=== PATIENT | male | born 1980 | race Caucasian/White ===

== ENCOUNTER → 2017-03-24 | Outpatient (CLI) | payer OTHER ==
[2017-03-24 19:53] LABS: BASO # 0.1 K/mm3 (0.0-0.2); BASO % 0.9 % (0.0-1.0); EOS # 0.5 K/mm3 (0.0-0.50); EOS % 6.9 % (0.0-3.0); LARGE UNSTAINED CELL # 0.3 K/mm3 (0.0-0.4); LARGE UNSTAINED CELL % 5.1 % (0.0-4.0); LYMPH # 2.1 K/mm3 (1.5-4.5); LYMPH % 25.8 % (24.0-44.0); MEAN CORPUSCULAR HEMOGLOBIN 29.5 pg (27.0-33.0); MEAN CORPUSCULAR HGB CONC 33.8 g/dl (32.0-36.5); MEAN CORPUSCULAR VOLUME 87.3 fl (80.0-96.0); MONO # 0.4 K/mm3 (0.0-0.8); NEUTROPHILS # 3.7 K/mm3 (1.8-7.7); NEUTROPHILS % 55.3 % (36.0-66.0); PLATELET COUNT, AUTOMATED 199 k/mm3 (150-450); RED CELL DISTRIBUTION WIDTH 13.5 % (11.5-14.5); WHITE BLOOD COUNT 6.7 K/mm3 (4.0-10.0)
[2017-03-24 19:57] LABS: ALBUMIN 4.1 GM/DL (3.2-5.2); ALBUMIN/GLOBULIN RATIO 1.28 (1.00-1.93); ALKALINE PHOSPHATASE 77 U/L (45-117); ALT/SGPT 54 U/L (12-78); ANION GAP 5 MEQ/L (8-16); AST/SGOT 32 U/L (15-37); BILIRUBIN,TOTAL 0.5 MG/DL (0.2-1.0); BLOOD UREA NITROGEN 17 MG/DL (7-18); CALCIUM LEVEL 8.9 MG/DL (8.5-10.1); CARBON DIOXIDE LEVEL 28 MEQ/L (21-32); CHLORIDE LEVEL 109 MEQ/L (98-107); CREATININE FOR GFR 1.05 MG/DL (0.70-1.30); GLOMERULAR FILTRATION RATE > 60.0 (>60); GLUCOSE, FASTING 85 MG/DL (70-105); POTASSIUM SERUM 4.4 MEQ/L (3.5-5.1); SODIUM LEVEL 142 MEQ/L (136-145); TOTAL PROTEIN 7.3 GM/DL (6.4-8.2)
== END ==
LOC: M WUC 12:37
PROVIDERS: ATTEND Family Medicine
DX: R53.83 Other fatigue (principal)

== ENCOUNTER 2017-07-10 09:15 | Emergency (ER) | payer OTHER ==
[~2017-07-10] VITALS: Ht 175.3 cm; Wt 91.8 kg
[2017-07-10 09:21] VITALS: BP 133/72
[2017-07-10] MEDS ORDERED: TOBR3OPD (09:25)
[2017-07-10] MEDS ORDERED: NAPR500T3 PO (09:25)
[2017-07-10] MEDS ORDERED: FLUORESCEIN OPHTH 1 MG STRIP OS ONE (09:30)
[2017-07-10] MEDS ORDERED: TETRACAINE 0.5% OPHTH SOLN 4ML OS ONE (09:30)
[2017-07-10] MEDS ORDERED: PRED1SUS OS (10:19)
[2017-07-10] MEDS ORDERED: CYCL1SOL OS (10:19)
== END 2017-07-10 10:29 | disposition home or self-care (01) ==
LOC: M ED 09:15
DX: H20.042 Secondary noninfectious iridocyclitis, left eye (principal); C81.90 Hodgkin lymphoma, unspecified, unspecified site

== ENCOUNTER → 2017-07-23 | Outpatient (CLI) | payer OTHER | LOC: M WUC 12:23 | DX: J20.9 Acute bronchitis, unspecified (principal); R05 Cough | CPT/HCPCS: 71020 ==

== ENCOUNTER → 2019-09-03 | Outpatient (CLI) | payer OTHER ==
[~2019-09-03] MED LIST: AK-T0.3S; CYCL1SOL OS; NAPR-885 PO; PRED1SUS2 OS
--- NOTE | 2019-09-03 11:05 | PFTRPT ---
Site: [facility], [address], [place], [address] ID: [id number] Name: BRENNA NOVAK Visit Date: 09/03/2019 Second ID: [id number] Referring Doctor: Rose Marie Davidson Reviewing Doctor: Fili Gregory MD Bander Hand: Helio PIMENTEL RRT Age: 39 : 1980 Sex: Male Race: Height: 70.00 Inches Weight: 199.00 Lbs BSA: 2.08 Order IDs: [id number] Requested Test(s): <RESP-PFT.PFT B/A> Diagnosis: SOB of albuterol for postbronchodilator. Review Status: Not Reviewed Pre-Bronch Post-Bronch Pred Actual %Pred Actual %Chng SPIROMETRY FVC (L) 5.34 4.18 78 4.24 1 FEV1 (L) 4.28 3.34 78 3.44 2 FEV1/FVC (%) 80 80 99 81 1 FEF 25% (L/sec) 8.21 7.09 86 8.28 16 FEF 50% (L/sec) 5.42 3.60 66 4.08 13 FEF 75% (L/sec) 1.98 1.39 70 1.45 4 FEF 25-75% (L/sec) 4.09 3.03 74 3.31 9 FEF Max (L/sec) 10.22 8.07 78 8.85 9 FIVC (L) 4.18 3.97 -4 FIF 50% (L/sec) 5.30 6.40 120 6.77 5 FIF Max (L/sec) 6.39 6.87 7 MVV (L/min) 169 113 66 Expiratory Time (sec) 7.07 6.82 -3 Back Extrap Vol (L) 0.17 0.14 -13 Time To FEFmax (sec) 0.096 0.112 15 LUNG VOLUMES SVC (L) 5.14 4.23 82 IC (L) 3.48 3.50 100 ERV (L) 1.66 0.73 43 TGV (L) 3.44 2.67 77 RV (Pleth) (L) 1.78 1.94 108 TLC (Pleth) (L) 6.92 6.17 89 RV/TLC (Pleth) (%) 26 31 120 DIFFUSION DLCOunc (ml/min/mmHg) 33.57 28.17 83 DLCOcor (ml/min/mmHg) 33.57 28.58 85 DL/VA (ml/min/mmHg/L) 4.85 5.07 104 VA (L) 6.92 5.63 81 BHT (sec) 10.18 IVC (L) 4.19 TLC (SB) (L) 5.78 AIRWAYS RESISTANCE Raw (cmH2O/L/s) 1.45 1.06 73 Gaw (L/s/cmH2O) 1.03 0.98 95 sRaw (cmH2O*s) 4.76 3.41 71 sGaw (1/cmH2O*s) 0.20 0.30 149 BLOOD GASES Hgb (gm/dL) 14.1
== END ==
LOC: M CARPUL 10:10
PROVIDERS: ATTEND Physician Assistant Medical
DX: R06.02 Shortness of breath (principal); C81.90 Hodgkin lymphoma, unspecified, unspecified site

== ENCOUNTER → 2020-07-03 | Outpatient (CLI) | payer OTHER ==
[~2020-07-03] MED LIST changes: +E-Z-GAS II EFFERVESCENT PACKET (SODIUM BICARB./CITRIC ACID/SIMETHICONE) As Ordered ONE; +E-Z-HD 98% w/w 340GM SUSP BTL As Ordered ONE; +E-Z-PAQUE 96% w/w SUSP 176GM BTL As Ordered ONE
--- NOTE | 2020-07-03 15:33 | REP ---
INDICATION: DYSPHAGIA. COMPARISON: None TECHNIQUE: This procedure was performed by Lynn Sin, [facility], under the direct supervision of Dr. Harper. Images were reviewed with Dr. Harper prior to dictation. Liquid barium and gas producing crystals were given in the erect position, as well as liquid barium in the prone oblique position in order to perform a double contrast esophagram examination. . FINDINGS: A single view PA chest x-ray is submitted as a [employer] technical architect film. There is no change since the previous chest x-ray dated 07/23/2017. The oral and pharyngeal stages of deglutition were unremarkable. Esophageal transport is prompt and efficient and there is no evidence of esophagitis, stricture, or mucosal ring. There is no evidence of a hiatal hernia. There is a small amount of gastroesophageal reflux into the distal esophagus. IMPRESSION: Small amount of gastroesophageal reflux into the distal esophagus, otherwise unremarkable esophagram. 0.1 minutes of fluoroscopy time was utilized for this procedure. Some fluoroscopic images are performed with last image hold technology. These images require no additional radiation. <Electronically signed by Lynn Sin > 07/03/20 1434 <Electronically signed by Meng Harper > 07/03/20 1538
== END ==
LOC: M RAD 09:02
PROVIDERS: ATTEND Nurse Practitioner Family
DX: R13.10 Dysphagia, unspecified (principal)

== ENCOUNTER 2021-03-15 20:00 | Emergency (ER) | payer OTHER ==
[~2021-03-15] VITALS: Ht 175.3 cm; Wt 96.6 kg
[~2021-03-15 20:00] MED LIST changes: -E-Z-GAS II EFFERVESCENT PACKET (SODIUM BICARB./CITRIC ACID/SIMETHICONE) As Ordered ONE; -E-Z-HD 98% w/w 340GM SUSP BTL As Ordered ONE; -E-Z-PAQUE 96% w/w SUSP 176GM BTL As Ordered ONE
[2021-03-16] MEDS ORDERED: BOOSTRIX/ADACEL VACCINE (DIPHTH/PERTUSS/ACELL/TETANUS) 0.5ML SYR IM ONE (02:15)
[2021-03-16] MEDS ORDERED: DERMABOND TOPICAL SKIN ADHESIVE TOP ONE ×2 (02:15→02:55)
--- NOTE | 2021-03-16 03:40 | REPVR ---
PROCEDURE INFORMATION: Exam: XR Left Foot Exam date and time: 03/16/2021 2:29 AM Age: 41 years old Clinical indication: Injury or trauma; Other: Laceration; Foot; Left; Foreign body involvement not specified; Additional info: Hatchet injury great toe TECHNIQUE: Imaging protocol: XR Left foot. Views: 3 or more views. COMPARISON: No relevant prior studies available. FINDINGS: Bones/joints: Normal. Soft tissues: Suggestion of slight soft tissue injury of the distal great toe the remaining soft tissues are normal. IMPRESSION: 1. Suggestion of slight soft tissue injury of the distal great toe. 2. Otherwise negative left foot. Electronically signed by: Jose Schuler On 03/16/2021 03:39:38 AM
[2021-03-16 04:17] VITALS: BP 132/71
== END 2021-03-16 04:18 | disposition home or self-care (01) ==
LOC: M ED 20:00
DX: S91.111A Laceration without foreign body of right great toe without damage to nail, initial encounter (principal); X58.XXXA Exposure to other specified factors, initial encounter; Y92.099 Unspecified place in other non-institutional residence as the place of occurrence of the external cause; Y93.9 Activity, unspecified; Y99.9 Unspecified external cause status

== ENCOUNTER → 2022-02-22 | Outpatient (REF) | payer OTHER | LOC: M WUC 19:09 | PROVIDERS: ATTEND Physician Assistant | DX: J02.9 Acute pharyngitis, unspecified (principal) ==

== ENCOUNTER 2022-02-26 15:04 | Emergency (ER) | payer OTHER ==
[~2022-02-26] VITALS: Ht 177.8 cm; Wt 95.3 kg
[2022-02-26] MEDS ORDERED: DERMABOND TOPICAL SKIN ADHESIVE TOP ONE (18:20)
[2022-02-26 18:34] LABS: BASO # 0.1 10^3/uL (0.0-0.2); BASO % 0.4 % (0.0-1.0); EOS # 0.2 10^3/uL (0.0-0.5); EOS % 1.2 % (0.0-3.0); HEMATOCRIT 43.5 % (42.0-52.0); HEMOGLOBIN 14.2 g/dl (13.5-17.5); LYMPH # 2.3 10^3/uL (1.5-5.0); LYMPH % 18.7 % (24.0-44.0); MEAN CORPUSCULAR HEMOGLOBIN 28.7 pg (27.0-33.0); MEAN CORPUSCULAR HGB CONC 32.6 g/dl (32.0-36.5); MEAN CORPUSCULAR VOLUME 88.1 fl (80.0-96.0); MONO # 0.8 10^3/uL (0.0-0.8); MONO % 6.4 % (2.0-8.0); NEUTROPHILS # 8.9 10^3/uL (1.5-8.5); NEUTROPHILS % 72.9 % (36.0-66.0); PLATELET COUNT, AUTOMATED 262 10^3/uL (150-450); RED BLOOD COUNT 4.94 10^6/uL (4.30-6.10); WHITE BLOOD COUNT 12.3 10^3/uL (4.0-10.0)
[2022-02-26 20:11] VITALS: BP 148/82
== END 2022-02-26 20:15 | disposition home or self-care (01) ==
LOC: M ED 15:04
DX: S01.81XA Laceration without foreign body of other part of head, initial encounter (principal); R55 Syncope and collapse; W01.198A Fall on same level from slipping, tripping and stumbling with subsequent striking against other object, initial encounter; Y92.89 Other specified places as the place of occurrence of the external cause; R94.31 Abnormal electrocardiogram [ECG] [EKG]; K21.9 Gastro-esophageal reflux disease without esophagitis

== ENCOUNTER → 2022-05-18 | Outpatient (REF) | payer OTHER ==
[2022-05-18 18:54] LABS: C REACTIVE PROTEIN QUANTITATIV < 0.30 MG/DL (0.00-0.30); RHEUMATOID FACTOR QUANT < 10.0 IU/ML (<15.0)
== END ==
LOC: M LAB REF 16:13
PROVIDERS: ATTEND Internal Medicine
DX: M25.50 Pain in unspecified joint (principal)

== ENCOUNTER 2022-08-04 11:43 | Day surgery (SDC) | payer OTHER ==
[~2022-08-04] VITALS: Ht 177.8 cm; Wt 98.4 kg
[~2022-08-04 11:43] MED LIST changes: +NS 1,000 ML IV ONE; +PANT40TA29 PO
[2022-08-04] MEDS ORDERED: LIDOCAINE 2% 100MG/5ML SDV (FOR ANES.) As Ordered ONE (11:52)
[2022-08-04] MEDS ORDERED: propofoL 200 MG/20 ML VIAL As Ordered ONE (11:52)
[2022-08-04] MEDS ORDERED: fentaNYL 100 MCG/2 ML INJECTION As Ordered ONE (11:53)
[2022-08-04 12:30] VITALS: BP 108/57
== END 2022-08-04 12:48 | disposition home or self-care (01) ==
LOC: M OPP 11:43
PROVIDERS: ATTEND Internal Medicine Gastroenterology
DX: R13.10 Dysphagia, unspecified (principal); K44.9 Diaphragmatic hernia without obstruction or gangrene; K21.9 Gastro-esophageal reflux disease without esophagitis; Z79.899 Other long term (current) drug therapy

== ENCOUNTER → 2024-04-09 | Outpatient (CLI) | payer OTHER ==
[~2024-04-09] MED LIST changes: -AK-T0.3S; -NS 1,000 ML IV ONE; +TOBR0.3S30
== END ==
LOC: M SLEEP 20:00
PROVIDERS: ATTEND Physician Assistant Medical
DX: R06.83 Snoring (principal)

== ENCOUNTER 2024-06-15 20:06 | Emergency (ER) | payer OTHER ==
[~2024-06-15] VITALS: Ht 177.8 cm; Wt 96.0 kg
[~2024-06-15 20:06] MED LIST changes: +MELO7.5T35 PO; +VENTAER INH
[2024-06-15] MEDS ORDERED: BACT800T5 PO (21:38)
[2024-06-15 22:25] VITALS: BP 101/55; TEMP 97.7; O2SAT 96
[2024-06-15] MEDS ORDERED: METH-1164 PO (22:25)
[2024-06-15] MEDS: methocarbamoL 500 MG TAB PO ONE (22:31)
== END 2024-06-15 22:32 | disposition home or self-care (01) ==
LOC: M ED 20:06
DX: S13.4XXA Sprain of ligaments of cervical spine, initial encounter (principal); V89.2XXA Person injured in unspecified motor-vehicle accident, traffic, initial encounter; Y92.9 Unspecified place or not applicable; Y93.9 Activity, unspecified; Y99.9 Unspecified external cause status; J45.909 Unspecified asthma, uncomplicated; Z87.442 Personal history of urinary calculi; Z85.72 Personal history of non-Hodgkin lymphomas; Z79.899 Other long term (current) drug therapy

== ENCOUNTER 2024-06-20 11:25 | Day surgery (SDC) | payer OTHER ==
[~2024-06-20] VITALS: Ht 177.8 cm; Wt 93.0 kg
[~2024-06-20 11:25] MED LIST changes: +BACT800T5 PO; +METH-1164 PO
[2024-06-20] MEDS ORDERED: LIDOCAINE 2% 100MG/5ML SDV (FOR ANES.) As Ordered ONE (12:51)
[2024-06-20] MEDS ORDERED: fentaNYL 100 MCG/2 ML INJECTION As Ordered ONE (12:51)
[2024-06-20] MEDS ORDERED: propofoL 200 MG/20 ML VIAL As Ordered ONE (12:51)
[2024-06-20 12:54] VITALS: TEMP 97.2
[2024-06-20 13:14] VITALS: BP 128/74; O2SAT 96
== END 2024-06-20 13:32 | disposition home or self-care (01) ==
LOC: M OPP 11:25
PROVIDERS: ATTEND Internal Medicine Gastroenterology
DX: K22.2 Esophageal obstruction (principal); K44.9 Diaphragmatic hernia without obstruction or gangrene; R13.10 Dysphagia, unspecified; Z87.19 Personal history of other diseases of the digestive system; J45.909 Unspecified asthma, uncomplicated; Z85.72 Personal history of non-Hodgkin lymphomas; Z92.3 Personal history of irradiation; Z92.21 Personal history of antineoplastic chemotherapy; Z79.899 Other long term (current) drug therapy; Z79.1 Long term (current) use of non-steroidal anti-inflammatories (NSAID)
CPT/HCPCS: 43249; J3010

== ENCOUNTER → 2024-10-23 | Outpatient (REF) | payer OTHER | LOC: M LAB REF 17:34 | PROVIDERS: ATTEND Internal Medicine Endocrinology, Diabetes & Metabolism | DX: E04.2 Nontoxic multinodular goiter (principal) ==

== ENCOUNTER → 2024-12-06 | Outpatient (REF) ==
[~2024-12-06] MED LIST changes: +ALBU8.5H INH
== END ==
LOC: M PLAIMG 11:39
PROVIDERS: ATTEND Internal Medicine
DX: R06.02 Shortness of breath (principal)

== ENCOUNTER 2024-12-12 08:43 | Day surgery (SDC) | payer OTHER ==
[~2024-12-12] VITALS: Ht 177.8 cm; Wt 91.8 kg
[2024-12-12] MEDS ORDERED: LIDOCAINE 2% 100MG/5ML SDV (FOR ANES.) As Ordered ONE (10:04)
[2024-12-12] MEDS ORDERED: propofoL 200 MG/20 ML VIAL As Ordered ONE (10:04)
[2024-12-12] MEDS ORDERED: fentaNYL 100 MCG/2 ML INJECTION As Ordered ONE (10:05)
[2024-12-12 10:19] VITALS: TEMP 97.4
[2024-12-12 10:36] VITALS: BP 117/65; O2SAT 100
== END 2024-12-12 10:46 | disposition home or self-care (01) ==
LOC: M OPP 08:43
PROVIDERS: ATTEND Internal Medicine Gastroenterology
DX: K22.2 Esophageal obstruction (principal); K44.9 Diaphragmatic hernia without obstruction or gangrene; K21.9 Gastro-esophageal reflux disease without esophagitis; J45.909 Unspecified asthma, uncomplicated; J70.1 Chronic and other pulmonary manifestations due to radiation; G43.909 Migraine, unspecified, not intractable, without status migrainosus; Z92.21 Personal history of antineoplastic chemotherapy; Z79.899 Other long term (current) drug therapy; Z79.1 Long term (current) use of non-steroidal anti-inflammatories (NSAID); Z85.71 Personal history of Hodgkin lymphoma; Z92.3 Personal history of irradiation
CPT/HCPCS: 43249; J3010